=== PATIENT | male | born 1965 | race Two or more races ===

== ENCOUNTER 2019-12-27 00:03 | Emergency (ER) | payer MEDICAID ==
[~2019-12-27] VITALS: Ht 175.3 cm; Wt 97.5 kg
[2019-12-27 04:18] VITALS: BP 161/106
[2019-12-27] MEDS ORDERED: methylPREDNISolone SOD SUCC 125 MG/2 ML VL IM ONE (06:00)
[2019-12-27] MEDS ORDERED: KETOROLAC TROMETH 60MG/2ML VIAL IM ONE (06:00)
== END 2019-12-27 06:26 | disposition home or self-care (01) ==
LOC: ER 00:14
DX: S30.860A Insect bite (nonvenomous) of lower back and pelvis, initial encounter (principal); I10 Essential (primary) hypertension; M79.10 Myalgia, unspecified site; L29.9 Pruritus, unspecified; W57.XXXA Bitten or stung by nonvenomous insect and other nonvenomous arthropods, initial encounter; Y93.89 Activity, other specified; Y92.89 Other specified places as the place of occurrence of the external cause; Y99.8 Other external cause status
CPT/HCPCS: 96372; 99284; J1885; J2930